=== PATIENT | male | born 1985 | race African-American/Black ===

== ENCOUNTER 2018-10-25 20:51 | Emergency (ER) | payer MEDICAID ==
[~2018-10-25] VITALS: Ht 185.4 cm; Wt 97.5 kg
--- NOTE | 2018-10-25 22:01 | NUR ---
pt bibself from home, c/o epigastric pain for the past 2 days; +N/+V/-D, +Dysuria. Per pt report was taking bactrim at home for his prostatitis; went out drinking alcohol 2 days ago. pt resting in bed, already seen by MD. No s/s of acute distress or sob noted. will continue to monitor pt.
[2018-10-25] MEDS: PANTOPRAZOLE 40 MG VIAL IV ONE (22:30)
[2018-10-25] MEDS: IV NS 0.9% 1,000 ML BAG IV ONE (22:30)
[2018-10-25] MEDS ORDERED: ONDANSETRON HCL/PF 4 MG/2 ML VIAL ONE (22:34)
[2018-10-25] MEDS ORDERED: HYDROMORPHONE INJ 0.5 MG/0.5 ML SYRINGE ONE (22:34)
[2018-10-25] MEDS ORDERED: PANTOPRAZOLE 40 MG VIAL ONE (22:34)
[2018-10-25 22:39] LABS: BASOPHILS % (AUTO) 0.1 % (0.0-2.0); EOSINOPHILS % (AUTO) 0.3 % (0.0-6.0); HEMATOCRIT 45 % (39-51); HEMOGLOBIN 14.8 g/dL (13.5-17.5); LYMPHOCYTES # (AUTO) 0.5 /CMM (0.8-4.8); LYMPHOCYTES % (AUTO) 7.1 % (20.0-44.0); MEAN CORPUSCULAR HGB CONC 33 g/dl (31.0-36.0); MEAN CORPUSCULAR VOLUME 78 fL (80-96); MONOCYTES # (AUTO) 0.6 /CMM (0.1-1.30); MONOCYTES % (AUTO) 8.5 % (2.0-12.0); NEUTROPHILS # (AUTO) 5.9 /CMM (1.8-8.9); PLATELET COUNT (AUTO) 245 /CMM (150-450); RED BLOOD CELL COUNT(AUTO) 5.75 MIL/uL (4.5-6.0)
[2018-10-25 22:41] LABS: APPEARANCE,URINE CLEAR (CLEAR); BILIRUBIN,URINE NEGATIVE (NEGATIVE); BLOOD, URINE NEGATIVE Ery/uL (NEGATIVE); COLOR,URINE YELLOW (YELLOW); KETONES,URINE 2+ (NEGATIVE); LEUKOCYTE ESTERASE ,URINE NEGATIVE (NEGATIVE); NITRITE, URINE NEGATIVE (NEGATIVE); PH,URINE 7.5 (5.0-8.0); PROTEIN,URINE NEGATIVE (NEGATIVE); UGLUCOSE NEGATIVE (NEGATIVE); UROBILINOGEN,URINE 0.2 EU/dL (0.2)
[2018-10-25 22:48] LABS: CALCIUM, SERUM 9.1 mg/dL (8.5-10.1); CREATININE 1.8 mg/dL (0.6-1.3); POTASSIUM 3.8 mmol/L (3.5-5.1)
[2018-10-25 22:54] LABS: BACTERIA,URINE Rare /HPF (None Seen); RBC,URINE 0-2 /HPF (0-2); SQUAMOUS EPITHELIAL CELL,UR Few /HPF (None Seen)
[2018-10-25] MEDS: ONDANSETRON HCL/PF 4 MG/2 ML VIAL IVP ONE (22:54)
[2018-10-25 22:55] LABS: ALBUMIN 4.1 g/dL (3.4-5.0); BILIRUBIN,DIRECT 0.1 mg/dL (0.0-0.2); BILIRUBIN,TOTAL 0.5 mg/dL (0.2-1.0); TOTAL PROTEIN, SERUM 7.7 g/dL (6.4-8.2)
[2018-10-25] MEDS: HYDROMORPHONE INJ 2 MG/ML DISP.SYRIN IV ONE (23:01)
--- NOTE | 2018-10-25 23:03 | NUR ---
iv access started on RAC #20g.
--- NOTE | 2018-10-25 23:03 | NUR ---
pt taken for CT
--- NOTE | 2018-10-25 23:29 | NUR ---
pt is back from CT
--- NOTE | 2018-10-25 23:42 | NUR ---
all ordered meds given.
[2018-10-26] MEDS: IV NS 0.9% 1,000 ML BAG IV ONE (01:01)
[2018-10-26] MEDS ORDERED: ONDANSETRON HCL/PF 4 MG/2 ML VIAL ONE (01:58)
[2018-10-26] MEDS: ONDANSETRON HCL/PF 4 MG/2 ML VIAL IV ONE (02:06)
[2018-10-26] MEDS: HYDROMORPHONE 1 MG/1 ML DISP.SYRIN IV ONE (02:41)
--- NOTE | 2018-10-26 03:29 | NUR ---
Patient discharged to home in stable condition. Written and verbal after care instructions given. Patient verbalizes understanding of instruction. Patient left facility on foot with steady gait. NO s/s of acute distress or sob noted. VS stable. IV access on RAC removed, secured with gauze and tape. No signs of bleeding noted. Pt being driven back home by girlfriend.
[2018-10-26 03:31] VITALS: BP 142/86
== END 2018-10-26 03:33 | disposition home or self-care (01) ==
LOC: ER 20:57
DX: J10.1 Influenza due to other identified influenza virus with other respiratory manifestations (principal); E86.0 Dehydration; R82.4 Acetonuria; K57.30 Diverticulosis of large intestine without perforation or abscess without bleeding; R10.13 Epigastric pain; F10.10 Alcohol abuse, uncomplicated; R11.2 Nausea with vomiting, unspecified; N41.1 Chronic prostatitis; G89.29 Other chronic pain; M54.9 Dorsalgia, unspecified; Y90.9 Presence of alcohol in blood, level not specified
CPT/HCPCS: 36415; 80048-TC; 80076-TC; 81000-TC; 83690-TC; 85025-TC; 87400; C9113; J2405; J7030